=== PATIENT | female | born 1985 | race Hispanic/Latino ===

== ENCOUNTER 2023-02-18 01:52 | Emergency (ER) | payer OTHER ==
[~2023-02-18] VITALS: Ht 160 cm; Wt 90.7 kg
[2023-02-18 01:54] VITALS: BP 145/85
== END 2023-02-18 02:35 | disposition left against medical advice (07) ==
LOC: EDH 01:52
DX: R21 Rash and other nonspecific skin eruption (principal); Z53.21 Procedure and treatment not carried out due to patient leaving prior to being seen by health care provider
CPT/HCPCS: 99281

== ENCOUNTER 2025-03-28 02:25 | Emergency (ER) | payer SELFPAY ==
[~2025-03-28] VITALS: Ht 167.6 cm; Wt 90.7 kg
--- NOTE | 2025-03-28 02:51 | ERN ---
ED Note History of Present Illness Stated Complaint: LEFT LOWER BACK PAIN, PAINFUL UA Chief Complaint: Back Pain-No Injury Time Seen by MD: 02:37 Dictation: This is a 39-year-old female who presented to the emergency room complaining of lower back pain mostly on the left side and painful micturition. Started today and she could not sleep and came in for evaluation. She denied fever chills or rigors no hematuria. Temperature 98.8 pulse 77 respirations 18 blood pressure 135/72 with a pulse oximetry of 97% on room air Allergies: Coded Allergies: No Known Allergies (Unverified Allergy, Unknown, 02/18/23) Past Medical History Past Medical History: No Pertinent History Surgical History: Family History: Negative Social History: Negative RN Note Reviewed/Agreed w/PFSH: Yes Review of System Dictation Constitutional: Negative for fever,chills, and weight loss Eyes: Negative for injury, pain,redness, and discharge ENT: Negative for injury,pain or swelling Cardiovascular: Negative for chest pain, palpitations, and edema Respiratory: Negative for shortness of breath, cough, and wheezing, Abdomen/GI: Negative for abdominal pain, nausea, vomiting, diarrhea, and constipation Back: Negative for injury and positive for lower left back pain : Negative for injury, bleeding and discharge positive for dysuria MS/Extremity: Negative for injury and deformity Skin: Negative for rash, and discoloration Neuro: Negative for headache, weakness, numbness, tingling, and seizure Psych: Negative for suicide ideation, homicidal ideation, and hallucinations Initial Vital Sign VS Vital Signs Date Time Temp Pulse Resp B/P (MAP) Pulse Ox O2 Delivery O2 Flow Rate FiO2 03/28/25 02:26 98.8 77 18 135/72 97 Room Air 03/28/25 02:33 0 21 Physical Exam Dictation General: awake, alert, NAD Head/Face: Normocephalic, atraumatic Eyes: PERRL, EOMI, vision at baseline ENT: oral cavity clear, TMs clear, no signs of infection Neck: Trachea midline, supple, no nuchal rigidity Cardiovascular: RRR, normal S1/S2, No MRGs, no JVD Respiratory: CTAB, no respiratory distress, No rales or wheezes Abdomen: Soft, non-tender, non-distended, normal bowel sounds, no guarding or r ebound. No costovertebral angle tenderness Skin: Warm, dry, normal turgor, no rash MS/Extremity: Pulses equal, no cyanosis, neurovascular intact, FROM Neuro: COAx4, GCS 15, strength 5/5, CN 2-12 intact, normal cerebellar exam, normal gait, Psych: Normal behavior, mood, and affect normal Extremities-trace edema without any palpable cords, Homans sign is negative Results (Laboratory/Radiology) Laboratory/Radiology Laboratory Tests Test 03/28/25 02:41 03/28/25 02:55 Urine Color LIGHT-YELLOW (YELLOW) Urine Appearance CLEAR (CLEAR) Urine pH 6.5 (5.0-8.0) Urine Specific [place] 1.010 (1.001-1.031) Urine Protein NEGATIVE mg/dL (NEGATIVE) Urine Glucose (UA) NEGATIVE mg/dL (NEGATIVE) Urine Ketones NEGATIVE mg/dL (NEGATIVE) Urine Occult Blood LARGE (NEGATIVE) H Urine Nitrate NEGATIVE (NEGATIVE) Urine Bilirubin NEGATIVE mg/dL (NEGATIVE) Urine Urobilinogen 0.2 mg/dL (0.2-1.0) Urine Leukocyte Esterase NEGATIVE David/uL Urine RBC 11-25 /HPF (0-1) H Urine WBC 2-5 /HPF (0-1) H Urine Squamous Epithelial Cells RARE /HPF (0-2) Urine Bacteria RARE /HPF (None Seen) Urine HCG, Qualitative NEGATIVE (NEGATIVE) White Blood Count 10.6 K/uL (4.8-10.8) Red Blood Count 3.75 MIL/uL (4.00-5.50) L Hemoglobin 9.0 g/dL (12.0-16.0) L Hematocrit 28.4 % (36-48) L Mean Corpuscular Volume 75.7 fL (79-99) L Mean Corpuscular Hemoglobin 24.0 pg (27.0-33.0) L Mean Corpuscular Hemoglobin Concent 31.7 g/dL (32.0-36.0) L Red Cell Distribution Width 14.7 % (11.0-15.5) Platelet Count 275 K/uL (130-400) Mean Platelet Volume 9.9 fL (7.5-10.5) Immature Granulocyte % (Auto) 0.3 % (0-1) Neutrophils (%) (Auto) 47.7 % (40.0-77.0) Lymphocytes (%) (Auto) 40.3 % (21.0-51.0) Monocytes (%) (Auto) 9.6 % (3.0-13.0) Eosinophils (%) (Auto) 1.8 % (0.0-8.0) Basophils (%) (Auto) 0.3 % (0.0-5.0) Neutrophils # (Auto) 5.1 K/uL (1.8-7.7) Lymphocytes # (Auto) 4.3 K/uL (1.0-4.8) Monocytes # (Auto) 1.0 K/uL (0.1-1.0) Eosinophils # (Auto) 0.19 K/uL (0.00-0.70) Basophils # (Auto) 0.03 K/uL (0.00-0.20) Absolute Immature Granulocyte (auto 0.03 K/uL (0-1) Nucleated Red Blood Cells 0.0 % (0.0-0.19) Red Blood Cell Morphology See comments Sodium Level 136 mmol/L (136-145) Potassium Level 3.4 mmol/L (3.5-5.1) L Chloride Level 102 mmol/L (101-111) Carbon Dioxide Level 28 mmol/L (21-32) Blood Urea Nitrogen 15 mg/dL (7-18) Creatinine 0.6 mg/dL (0.5-1.0) Glomerular Filtration Rate Calc 117 mL/min (>90) Random Glucose 126 mg/dL (70-105) H Total Calcium 8.2 mg/dL (8.5-10.1) L Total Bilirubin 0.2 mg/dL (0.2-1.0) Aspartate Amino Transf (AST/SGOT) 19 U/L (10-37) Alanine Aminotransferase (ALT/SGPT) 31 U/L (12-78) Alkaline Phosphatase 92 U/L (50-136) Total Protein 6.8 g/dL (6.0-8.3) Albumin 3.2 g/dL (3.5-5.0) L Labs Reviewed?: Yes CT Scan Comment: REASON: Severe Left flank pain ORDERING PHYSICIAN: OZZIE SANTANA MD PROCEDURE: ABD PELVWO - CT ABD/PEL WO CON RENAL/APPY EXAM: CT Abdomen and Pelvis without IV contrast CLINICAL HISTORY: Severe left flank pain. TECHNIQUE: Thin collimated axial CT images of the abdomen and pelvis were obtained with sagittal and coronal reformatted images also submitted. CT scan is done according to ALARA (As Low As Reasonably Achievable). CONTRAST: None. COMPARISON: None. FINDINGS: The included lungs are clear. Mild fatty liver. Cholelithiasis without acute cholecystitis. No focal abnormality within the pancreas, spleen, or adrenals. There are a few punctate nonobstructive renal calculi bilaterally. 0.4 cm obstructive calculus around the left vesicoureteric junction with mild proximal hydroureteronephrosis. Unremarkable urinary bladder. Mildly enlarged uterus. Unremarkable ovaries. No obvious bowel wall thickening, dilatation, or obstruction. Unremarkable appendix. A component of mild constipation is present in the colon. Limited evaluation of the abdominal vessels due to the lack of intravenous contrast. No abdominal aortic aneurysm is evident. No pathologic lymphadenopathy in the abdomen or pelvis. No ascites or pneumoperitoneum. No acute bony abnormality is evident. Degenerative disc disease at L5-S1. IMPRESSIONS: 0.4 cm obstructive calculus around the left vesicoureteric junction with mild proximal hydroureteronephrosis. /[place] DICTATED BY: MAURICIO ALY Jr., MD DATE: 03/28/25557 ELECTRONICALLY SIGNED BY: MAURICIO ALY Jr., MD DATE: 03/28/25557 ED Course ED Course Orders Procedure Category Date Status Time Urinalysis Profile LAB 03/28/25 Complete 02:32 ,Urine Test LAB 03/28/25 Complete 02:32 Cbc With Differential LAB 03/28/25 Complete 02:32 Comprehensive LAB 03/28/25 Complete Metabolic Panel 02:32 Ketorolac PHA 03/28/25 Complete Tromethamine 30mg/Ml 03:30 Methylprednisolone PHA 03/28/25 Complete Succ 40mg (Solu-Medro 03:30 Cyclobenzaprine Hcl PHA 03/28/25 Complete (Cyclobenzaprine Hcl 03:30 Ct Abd/Pel Wo Con CT 03/28/25 Resulted Renal/Appy 03:28 0.9%Nacl 1000ml (Ns PHA 03/28/25 Complete 1000ml) 04:00 Current Medications Medications (Trade) Dose Ordered Sig/Maxime Route PRN Reason Start Time Stop Time Status Last Admin Dose Admin Cyclobenzaprine HCl (Cyclobenzaprine HCl) 5 mg ONCE ONCE PO 03/28/25 03:30 03/28/25 03:31 DC 03/28/25 03:31 Ketorolac Tromethamine (toRADol) 30 mg ONCE ONCE IVP 03/28/25 03:30 03/28/25 03:31 DC 03/28/25 03:33 Methylprednisolone Sodium Succinate (Solu-medROL 40MG) 40 mg ONCE ONCE IVP 03/28/25 03:30 03/28/25 03:31 DC 03/28/25 03:31 Sodium Chloride 1,000 ml @ 0 mls/hr ONCE ONCE IV 03/28/25 04:00 03/28/25 04:01 DC 03/28/25 04:25 Vital Signs Date Time Temp Pulse Resp B/P (MAP) Pulse Ox O2 Delivery O2 Flow Rate FiO2 03/28/25 03:22 76 17 152/65 100 Room Air* 0 21 03/28/25 02:33 98.8 79 18 135/81 100 Room Air* 0 21 03/28/25 02:26 98.8 77 18 135/72 97 Room Air We will perform diagnostic labs, advanced imaging and administer medications according to the patient's complaint. Once the results are available, will review and personally interpreted the labs to rule out any acute life- threatening emergency the trach require immediate intervention and treatment. I will then re-evaluate the patient after treatment and diagnostic exams have return to determine whether the patient requires any further testing, can safely be discharged home or need further admission to hospital for additional treatment and evaluation. 3:20 a.m. labs reviewed CBC is with a normal limits BNP 7 showed a potassium of 3.4. LFTs are within normal limits. Urinalysis is unremarkable for any cystitis, urine had occult blood as well as RBCs. urine test is negative. Given the test results I will pursue a CT scan of the abdomen and pelvis for evaluation of renal stone and hydronephrosis. Medical Decision Making MDM Differential diagnosis: Renal colic, pyelonephritis, lumbar radiculopathy, lumbago, paraspinal muscle spasm, UTI Rationale: Tests considered and ordered secondary to shared decision making include: Previous outside records reviewed: Old ER visits. Risk of complication and/or morbidity or mortality of patient management: None Medications-Per medication reconciliation Need for hospitalization: Patient does not meet criteria for hospitalization. Need for emergency major/minor surgery: No There are no social concerns with this patient. Prescription drug management Prescriptions will include symptomatic care Patient's prior external medical records from other ER visits were reviewed by me as indicated. Prior testing and results from previous visits were reviewed. Prior tests were taken into account with medical decision making and resource utilization, independent historian/historians were used to obtain complete medical history. I independently interpreted the test that were performed, results were reviewed by me and considered findings on radiology if ordered. Medical management and examination interpretation discussions were had by me with other qualified healthcare professionals as indicated for the patient's care. DX & DISP Disposition: Discharge Departure Impression: Primary Impression: Renal colic on left side Additional Impressions: Left nephrolithiasis, Hydroureteronephrosis Condition: Stable Scripts Ketorolac Tromethamine (Toradol) 10 Mg Tab 10 MG PO QID for pain for 5 Days, #20 TAB 0 Refills Prov: OZZIE SANTANA MD 03/28/25 Tamsulosin HCl (Flomax) 0.4 Mg Cap.er.24h 1 CAP PO DAILY for 10 Days, #10 CAP 0 Refills Prov: OZZIE SANTANA MD 03/28/25 Additional Instructions: Follow-up with primary care provider in 1 to 2 days. Take medications as directed here in the emergency room. Okay to continue home medications unless otherwise discussed during your visit in the emergency room today. Return to your nearest emergency room if symptoms worsen or if there is no improvement. Call 911 if you need immediate assistance. Take Tylenol or Motrin over-the- counter as needed and if no contraindications are present. Increase oral hydration. A wound culture or urine culture was ordered here in the emergency room department please follow-up with primary care provider and advise them to get repeat ports from our facility. If you had any Daniel wrap/splints that were applied here, please do not remove them until you see your primary care or specialty. Patient and the caregiver have been informed of all the diagnostic tests and the imaging conducted during the today's visit to the emergency room and has verbalized understanding of the results I have personally reviewed and interpreted all diagnostic exams performed here in the ER today as well as the vital signs documented by the nursing staff. The patient is now being discharged to home and should follow up with the primary care physician or the specialist as directed by the ER staff. Referrals: SELF,REFERRAL (PCP) OZZIE SANTANA MD Mar 28, 2025 02:51
[2025-03-28 02:52] LABS: APPEARANCE,URINE CLEAR (CLEAR); GLUCOSE, URINE (UA) NEGATIVE (NEGATIVE); LEUKOCYTE ESTERASE ,URINE NEGATIVE Leu/uL (NEGATIVE); NITRATE,URINE NEGATIVE (NEGATIVE); OCCULT BLOOD,URINE LARGE (NEGATIVE)
[2025-03-28 02:55] LABS: ADD UA MICROSCOPIC YES
[2025-03-28 02:56] LABS: HCG,QUALITATIVE URINE NEGATIVE (NEGATIVE)
[2025-03-28 02:58] LABS: SQUAMOUS EPITHELIAL CELL,UR RARE /HPF (0-2)
[2025-03-28 03:03] LABS: IMMATURE GRANULOCYTE ABSOLUTE 0.03 K/uL (0-1); NUCLEATED RED BLOOD CELLS 0.0 % (0.0-0.19); PLATELET COUNT (AUTO) 275 K/uL (130-400); RED BLOOD CELL COUNT(AUTO) 3.75 MIL/uL (4.00-5.50); RED CELL DISTRIBUTION WIDTH 14.7 % (11.0-15.5); WHITE BLOOD COUNT (AUTO) 10.6 K/uL (4.8-10.8)
[2025-03-28 03:11] LABS: CREATININE 0.6 mg/dL (0.5-1.0); GLOMERULAR FILTR. RATE CALC 117.0 mL/min (>90); GLUCOSE,RANDOM 126.0 mg/dL (70-105); SODIUM SERUM 136.0 mmol/L (136-145); UREA NITROGEN, BLOOD 15.0 mg/dL (7-18)
[2025-03-28 03:17] LABS: ASPARTATE AMINOTRANSFERASE 19.0 U/L (10-37); TOTAL PROTEIN, SERUM 6.8 g/dL (6.0-8.3)
[2025-03-28] MEDS: CYCLOBENZAPRINE HCL 10 MG TABLET PO ONE (03:31)
[2025-03-28] MEDS: Solu-medROL 40MG VIAL IVP ONE (03:31)
[2025-03-28] MEDS: 0.9%NACL 1000ML 1,000 ML IV ONE (04:25)
--- NOTE | 2025-03-28 04:56 | HMCIMG ---
EXAM: CT Abdomen and Pelvis without IV contrast CLINICAL HISTORY: Severe left flank pain. TECHNIQUE: Thin collimated axial CT images of the abdomen and pelvis were obtained with sagittal and coronal reformatted images also submitted. CT scan is done according to ALARA (As Low As Reasonably Achievable). CONTRAST: None. COMPARISON: None. FINDINGS: The included lungs are clear. Mild fatty liver. Cholelithiasis without acute cholecystitis. No focal abnormality within the pancreas, spleen, or adrenals. There are a few punctate nonobstructive renal calculi bilaterally. 0.4 cm obstructive calculus around the left vesicoureteric junction with mild proximal hydroureteronephrosis. Unremarkable urinary bladder. Mildly enlarged uterus. Unremarkable ovaries. No obvious bowel wall thickening, dilatation, or obstruction. Unremarkable appendix. A component of mild constipation is present in the colon. Limited evaluation of the abdominal vessels due to the lack of intravenous contrast. No abdominal aortic aneurysm is evident. No pathologic lymphadenopathy in the abdomen or pelvis. No ascites or pneumoperitoneum. No acute bony abnormality is evident. Degenerative disc disease at L5-S1. IMPRESSIONS: 0.4 cm obstructive calculus around the left vesicoureteric junction with mild proximal hydroureteronephrosis. /[place]
[2025-03-28] MEDS ORDERED: TAMS-55 PO (05:31)
[2025-03-28] MEDS ORDERED: KETO10 PO (05:31)
[2025-03-28 05:44] VITALS: BP 135/86; PULSE 89; RESP 15; TEMP 98.7; O2SAT 100
== END 2025-03-28 05:47 | disposition home or self-care (01) ==
LOC: EDH 02:25
DX: N13.2 Hydronephrosis with renal and ureteral calculous obstruction (principal)
CPT/HCPCS: 99285; 74176; 96374; 96361; 96375; 80053; 85025; 81001; 81025; 36415; J1885; J2919